=== PATIENT | female | born 1935 | race Caucasian/White ===

== ENCOUNTER 2018-09-16 13:19 | Day surgery (SDC) | payer MEDICARE, BC ==
[~2018-09-16 13:19] MED LIST: DEXAMETHASONE SOD PHOSPHATE 10 MG/ML 1 ML VIAL IV ONE; HEPARIN SODIUM,PORCINE 5,000 UNIT/ML 1 ML VIAL SQ ONE; LIDOCAINE 1% 20 ML VIAL (10MG/ML) FOR IV START INTRADERMA PRN; MIDAZOLAM 2 MG/2 ML VIAL IV PRN; ONDANSETRON 4 MG/2 ML VIAL IVP ONE; SCOPOLAMINE 1.5MG/72HR PATCH TRANSDERM ONE; ceFAZolin IN SWFI 2 GM/20 ML SYRINGE IVP ONE
[2018-09-16] MEDS: LACTATED RINGERS 1,000 ML IV SCH (13:47)
[2018-09-16 13:48] LABS: Glucose,Whole Blood 93 mg/dL (75-99)
[2018-09-16 14:00] LABS: Basophils % (A) 0 %; Eosinophils # (A) 0.4 k/uL (0-0.7); Eosinophils % (A) 5 %; HCT 38.5 % (34.0-46.0); HGB 12.2 gm/dL (11.4-16.0); Lymphocytes # (A) 1.5 k/uL (1.0-4.8); Lymphocytes % (A) 19 %; MCH 28.9 pg (25.0-35.0); MCHC 31.8 g/dL (31.0-37.0); MCV 91.2 fL (80.0-100.0); Mean Platelet Volume 7.9; Monocytes # (A) 0.7 k/uL (0-1.0); Monocytes % (A) 9 %; Neutrophils # (A) 5.2 k/uL (1.3-7.7); Neutrophils % (A) 65 %; Platelet Count 154 k/uL (150-450); RBC 4.23 m/uL (3.80-5.40); RDW 15.2 % (11.5-15.5)
[2018-09-16 14:33] LABS: Calcium 9.9 mg/dL (8.4-10.2)
[2018-09-16 14:51] LABS: Potassium 4.1 mmol/L (3.5-5.1)
[2018-09-16] MEDS ORDERED: GLYCOPYRROLATE 0.2 MG/ML 2 ML VIAL ONE (16:04)
[2018-09-16] MEDS ORDERED: NEOSTIGMINE 1 MG/ML 10 ML VIAL ONE (16:04)
[2018-09-16] MEDS ORDERED: PROPOFOL 10 MG/ML 20 ML VIAL IV ONE (16:04)
[2018-09-16] MEDS ORDERED: fentaNYL (PF) 50 MCG/ML 2 ML AMP ONE (16:04)
[2018-09-16] MEDS ORDERED: LIDOCAINE 1% INJ 10MG/ML (20 ML MDV) ONE (16:04)
[2018-09-16] MEDS ORDERED: ROCURONIUM BROMIDE 10 MG/ML 10 ML VIAL IV ONE (16:04)
[2018-09-16] MEDS ORDERED: MIDAZOLAM 2 MG/2 ML VIAL ONE (16:04)
[2018-09-16] MEDS ORDERED: BUPIVACAINE-EPI 0.5%-1:200,000 10 ML VIAL SQ ONE (16:52)
[2018-09-16 18:10] LABS: Glucose,Whole Blood 122 mg/dL (75-99)
[2018-09-16] MEDS ORDERED: NALOXONE 0.4 MG/ML 1 ML VIAL IV PRN (18:12)
--- NOTE | 2018-09-16 18:19 | P.OP ---
Date of Procedure: 09/16/18 Procedure(s) Performed: PREOPERATIVE DIAGNOSIS: Umbilical hernia, malfunctioning peritoneal dialysis catheter POSTOPERATIVE DIAGNOSIS: Same, extensive intra-abdominal adhesions PROCEDURE: Laparoscopic revision peritoneal dialysis catheter with laparoscopic omentopexy and laparoscopic extensive lysis of adhesions, umbilical herniorrhaphy with mesh SURGEON: Ally EBL: Minimal ANESTHESIA: General COMPLICATIONS: None OPERATIVE PROCEDURE: Patient place in the operative table in the supine position. The patient's abdomen including the catheter was prepped and draped in usual sterile fashion. A curved linear incision was made to the right side of the patient's umbilical hernia. Dissection through the subcutaneous tissues took place using electrocautery. The patient's hernia sac was excised. The fascial defect was appreciated. This measured 1.5 cm in diameter. There were is a large amount of adhesions at the level of the umbilicus. I could not visualize a free space to place a trocar. At that time a 5 mm optical trocar was used to enter the peritoneal cavity in the left upper quadrant without difficulty. 2 additional 5 mm trochars were placed in the left upper quadrant following that. The patient was noted to have extensive adhesions along the entire midline. The majority of these adhesions were omentum stuck to the abdominal wall however as we approached the pelvis the omentum was stuck to the small bowel and the small bowel was adherent to the abdominal wall particularly in the midline pelvis and the right lower quadrant. I was able to mobilize the majority of the omentum using both sharp dissection and electrocautery. At that point I performed an omentopexy suturing the omentum to fatty tissue present in the right mid to upper quadrant. This was sutured using a 2-0 Ethibond stitch and the tie knot device. The catheter was positioned appropriately in the midpelvis. There was adequate space for the catheter. I did not suture the catheter to the lower abdominal wall. The tubing of the catheter was cut externally. A guidewire was used to try to remove the fibrin from the inside of the catheter. This was partially successful. We also used a 20 mL syringe to irrigate the catheter. I was able to remove a large volume of fibrin from the inside of the catheter at that time. I then connected the catheter to a 1 L bag of saline. There was good flow in and out of the catheter at that point. The pneumoperitoneum was evacuated. The umbilical hernia site was then addressed. The temporary 0 Vicryl stitch was removed. I placed a 4.3 cm ventral ex mesh beneath the fascia. This was sutured in place using trans-fascial 0 Ethibond sutures. The defect was closed using interrupted [id number] 0 Ethibond sutures. The subcutaneous tissues were reapproximated using inverted 3-0 Vicryl sutures. The umbilicus was tacked back down to the fascia using a 3-0 Vicryl suture. The skin was closed using 4-0 Monocryl sutures. Skin glue and sterile dressings were then applied. DISPOSITION: Stable to recovery room
[2018-09-16] MEDS: HYDROmorphone 0.5 MG/0.5 ML SYRINGE IVP PRN ×4 (18:22→18:43)
[2018-09-16] MEDS ORDERED: diphenhydrAMINE 50 MG/ML 1 ML VIAL IVP ONE (19:04)
[2018-09-16] MEDS: HYDROcodone/APAP 5-325MG 1 EACH TAB PO PRN ×2 (20:00→23:37)
[2018-09-16] MEDS ORDERED: NITROGLYCERIN SL TABS 0.4 MG TAB SUBLINGUAL PRN (20:05)
[2018-09-16] MEDS ORDERED: ZOLPIDEM 10 MG TAB PO PRN (20:05)
[2018-09-16] MEDS ORDERED: ATORVASTATIN 80 MG TAB PO SCH (21:00)
[2018-09-16] MEDS ORDERED: LORATADINE 10 MG TAB PO SCH (21:00)
[2018-09-16] MEDS ORDERED: SERTRALINE 25 MG TAB PO SCH (21:00)
[2018-09-16 21:23] LABS: Glucose,Whole Blood 167 mg/dL (75-99)
--- NOTE | 2018-09-16 22:01 | P.CONS ---
History of Present Illness - Reason for Consult Consult date: 09/16/18 medical management Requesting physician: Ranjan Canales - Chief Complaint end-stage renal disease , hernia repair, diabetes, CAD, hypertension and h - History of Present Illness 83-year-old female one of Dr. Green patient with past medical history of type 2 diabetes on insulin, hypertension, hyperlipidemia and atherosclerotic heart disease post MO in the past who has been on hemodialysis for the last few years and had CAPD catheter back in April this year has been doing CAPD at home successfully till the last few weeks when her catheter stopped working. Patient brought to the hospital by Dr. Canales to have her CAPD catheter change and umbilical hernia repair. Also patient had hemodialysis catheter placed in the right IJ vein recently by one of the vascular surgeon in [place] patient apparently will be going on hemodialysis for the next 6 weeks then her CAPD catheter heal. She was admitted to the hospital after surgery hemodynamically was very stable still complaining of quite but pain and distention and abdominal area. Review of Systems CONSTITUTIONAL: Well-developed no acute respiratory distress. EYES: No icterus sclerae, no conjunctivitis. EARS, NOSE, MOUTH, THROAT, and FACE: No sore throat, lymphadenopathy, carotid bruits or deformity. RESPIRATORY: No SOB cough or wheezes. CARDIOVASCULAR: positive PND orthopnea and palpitation GASTROINTESTINAL: possible abdominal distention with nausea discomfort with irritation around CAPD catheter and a hernia repair site. GENITOURINARY: Negative for Hematuria or UTI, no kidney stones. INTEGUMENT/BREAST: Negative for any muscular injury with mild osteoarthritis.. HEMATOLOGIC/LYMPHATIC: Negative for bleed or purpura. MUSCULOSKELTAL: Negative for Myalgia or arthralgia. NEURLOGICAL: No LOC, Sz or syncope, blurred vision dizziness or abnormality.. BEHAVIORAL/PSYCH: Negative. ENDOCRINE: Negative. Past Medical History Past Medical History: Diabetes Mellitus, GERD/Reflux, Hyperlipidemia, Hypertension, Myocardial Infarction ([place]), Osteoarthritis (OA), Renal Disease, Thyroid Disorder Additional Past Medical History / Comment(s): CURRENTLY DOING HEMODIALYSIS ON M, W, F AT [facility]ENTER IN [place]. SINUS/ALLERGIES Last Myocardial Infarction Date:: UNKNOWN DATE History of Any Multi-Drug Resistant Organisms: None Reported Past Surgical History: Appendectomy, Bladder Surgery, Cardiac Valve Replacement, Heart Catheterization With Stent, Hysterectomy Additional Past Surgical History / Comment(s): BLADDER SUSPENSION. AORTIC VALVE REPLACED. BILATERAL CATARACTS WITH LENS IMPLANT. Past Anesthesia/Blood Transfusion Reactions: No Reported Reaction Date of Last Stent Placement:: UNKNOWN DATE Past Psychological History: Depression Smoking Status: Never smoker Past Alcohol Use History: None Reported Past Drug Use History: None Reported - Past Family History Father Additional Family Medical History / Comment(s): COLON Medications and Allergies Home Medications Medication Instructions Recorded Confirmed Type Aspirin [Adult Low Dose Aspirin EC] 81 mg PO DAILY 09/12/18 09/16/18 History Atorvastatin [Lipitor] 80 mg PO HS 09/12/18 09/16/18 History Carvedilol [Coreg] 25 mg PO BID 09/12/18 09/16/18 History Ergocalciferol (Vitamin D2) 1.5 mg PO Q30D 09/12/18 09/16/18 History [Vitamin D2] Evolocumab [Repatha Syringe] 140 mg SQ [id number] 09/12/18 09/16/18 History Eye Vitamin 1 tab PO DAILY 09/12/18 09/16/18 History Fluticasone [place]al [place] [Flonase 1 spr NASAL DAILY 09/12/18 09/16/18 History Nasal [place]] INSULIN LISPRO (humaLOG) [humaLOG] 1 dose SQ AC-TID 09/12/18 09/16/18 History Insulin Degludec [Tresiba] 1 dose SQ AC-TID 09/12/18 09/16/18 History Levothyroxine Sodium [Synthroid] 50 mcg PO QAM 09/12/18 09/16/18 History Lisinopril [Zestril] 10 mg PO QAM 09/12/18 09/16/18 History Loratadine [Claritin] 10 mg PO Q48H 09/12/18 09/16/18 History NIFEdipine [NIFEdipine ER] 90 mg PO QAM 09/12/18 09/16/18 History Nitroglycerin 0.4 mg SL DIRECTED PRN 09/12/18 09/16/18 History Ranitidine HCl [Zantac] 150 mg PO BID 09/12/18 09/16/18 History Sertraline [Zoloft] 25 mg PO HS 09/12/18 09/16/18 History Vitamin C/Biotin [Hair, Skin and 1 tab PO DAILY 09/12/18 09/16/18 History Nails] Zolpidem [Ambien] 10 mg PO HS PRN 09/12/18 09/16/18 History hydrALAZINE HCL 25 mg PO TID 09/12/18 09/16/18 History hydrALAZINE HCL [Apresoline] 75 mg PO TID 09/12/18 09/16/18 History Hydrocodone/Acetaminophen [[place] 1 tab PO Q6HR PRN 3 Days #10 tab 09/16/18 Rx 5-325] Allergies Allergy/AdvReac Type Severity Reaction Status Date / Time Iodinated Contrast- Oral and Allergy RENAL Verified 09/16/18 13:38 IV Dye DISEASE Physical Exam Vitals: Vital Signs Temp Pulse Resp BP BP Pulse Ox 09/16/18 19:40 97.6 F 63 17 177/75 99 09/16/18 19:16 59 L 16 154/69 98 09/16/18 18:58 63 12 168/74 99 09/16/18 18:45 66 16 166/73 100 09/16/18 18:31 60 16 161/74 100 09/16/18 18:16 59 L 16 168/74 100 09/16/18 18:01 97.5 F L 61 14 173/75 97 09/16/18 14:28 166/77 09/16/18 13:42 96.8 F L 68 18 225/98 98 Intake and Output 09/16/18 09/16/18 09/16/18 06:59 14:59 22:59 Intake Total 100 100 Output Total 15 Balance 100 85 Intake: IV 100 100 Output: Estimated Blood Loss 15 Other: # Voids 0 General Appearance: Alert, cooperative, no distress, appears stated age. Neck HEENT: Supple, no lymphadenopathy, no thyroid enlargement, no carotid bruits. Lungs: Clear to auscultation without crackles or wheezes no rhonchi, no deformity. Chest Wall: decrease expansion with deep inspiration no tenderness and no deformity was found on exam, no costochondral pain or discomfort. there is a hemodialysis catheter on the right upper side. Heart: Regular rate and rhythm, S1, S2 normal, no murmur, rub or gallop. Back: Symmetric, no curvature, ROM normal, no CVA tenderness. Abdomen: soft distended with slight irritation and discomfort around the umbilical and a hernia repair site , CAPD catheter was placed on the left side Mrs. Sousa tender with significant decrease bowel sound. Extremities: Extremities normal, atraumatic, no cyanosis or edema. Pulses: 2+ and symmetric. Skin: Skin color, texture, tugor normal, no rashes or lesions. Neurologic: Alert oriented x3 cranial nerves II through XII intact, no motor deficit, no abnormal balance or gait. Results CBC & Chem 7: 09/16/18 13:44 09/16/18 13:44 Labs: Abnormal Lab Results - Last 24 Hours (Table) 09/16/18 09/16/18 09/16/18 Range/Units 13:44 18:07 21:21 Chloride 97 L (98-107) mmol/L Carbon Dioxide 33 H (22-30) mmol/L BUN 34 H (7-17) mg/dL Creatinine 3.56 H (0.52-1.04) mg/dL POC Glucose (mg/dL) 122 H 167 H (75-99) mg/dL Assessment and Plan Plan: 1 post CAPD catheter change and umbilical hernia repair: Surgery successful patient is doing well continue to have slight the pain continue to watch patient hemodynamic status, continue pain management, resume home meds. 2 end-stage renal disease was on CAPD, patient be switched to hemodialysis for the next few weeks to her dialysis catheter with CAPD catheter had healed. 3 diabetes on insulin continue to see by along with a Humalog continue Accu-Chek with sliding scales coverage. 4 hypertension: Remain on hydralazine 75 mg 3 times a day along with nifedipine 90 mg daily lisinopril 10 mg a day and Coreg 25 mg twice a day. 5 hyperlipidemia: Remain on atorvastatin 80 mg daily. 6 hypothyroidism: On levothyroxine 50 g daily resume medication. 7 hyperlipidemia: Patient remain on Repatha injection.. 8 advanced atherosclerotic heart disease post PCI: Continue medical management. 9 valvular heart disease post TAVR 2 years ago at [facility] doing well. Severe GERD: Patient remain on Zantac 150 milligrams twice a day. 11 DVT prophylaxis: On heparin 5000 units subcutaneous twice a day. CODE STATUS: Full code. Dr. rodriguez thank you much for the consult psych can be any further help to please let me know.
[2018-09-16] MEDS: CARVEDILOL 12.5 MG TAB PO SCH (22:10)
[2018-09-16] MEDS: FAMOTIDINE 20 MG TAB PO SCH (22:11)
[2018-09-16] MEDS: hydrALAZINE HCL 25 MG TAB PO SCH (22:12)
[2018-09-17] MEDS: HYDROcodone/APAP 5-325MG 1 EACH TAB PO PRN ×2 (05:50→12:05)
[2018-09-17] MEDS: LACTATED RINGERS 1,000 ML IV SCH (06:23)
[2018-09-17] MEDS ORDERED: LEVOTHYROXINE 50 MCG TAB PO SCH (06:30)
[2018-09-17 06:54] LABS: Glucose,Whole Blood 120 mg/dL (75-99)
[2018-09-17] MEDS ORDERED: INSULIN LISPRO SQ SCH (07:30)
[2018-09-17] MEDS: INSULIN ASPART (NovoLOG) 100 UNIT/ML VIAL SQ SCH ×2 (08:12→12:05)
[2018-09-17] MEDS: hydrALAZINE HCL 25 MG TAB PO SCH (08:16)
[2018-09-17] MEDS: FAMOTIDINE 20 MG TAB PO SCH (08:16)
[2018-09-17] MEDS: CARVEDILOL 12.5 MG TAB PO SCH (08:18)
[2018-09-17] MEDS ORDERED: NON-FORMULARY DRUG (Vitamin C/Biotin [Hair, Skin And Nails] 1 TAB) PO SCH (09:00)
[2018-09-17] MEDS ORDERED: FLUTICASONE 50MCG/SPRAY NASAL 16GM NASAL SCH (09:00)
[2018-09-17] MEDS ORDERED: NIFEdipine XL 90 MG TAB.ER.24 PO SCH (09:00)
[2018-09-17] MEDS ORDERED: ASPIRIN 81 MG PO SCH (09:00)
[2018-09-17] MEDS ORDERED: VIT A,C & E-LUTEIN-MINERALS 1 EACH TAB PO SCH (09:00)
[2018-09-17] MEDS ORDERED: LISINOPRIL 10 MG TAB PO SCH (09:00)
--- NOTE | 2018-09-17 11:19 | P.NPCON ---
History of Present Illness - Reason for Consult end stage renal disease - History of Present Illness Reason for consultation: End-stage renal disease History of present illness: Patient is a 83-year-old female seen in renal consultation for end-stage renal disease. She is maintained on hemodialysis on a Saturday schedule for right chest permacath. Patient was started on hemodialysis in March 2018 and was doing peritoneal dialysis. However she was having difficulty with draining. She underwent laparoscopic revision of the peritoneal dialysis catheter with laparoscopic omentopexy with lysis of adhesions yesterday. Currently sitting up in chair. Denies chest pain or shortness of breath. No edema. Hemodynamically stable. No vomiting or diarrhea. Vital signs are stable. General: The patient appeared well nourished and normally developed. HEENT: Head exam is unremarkable. Neck is without jugular venous distension. LUNGS: Lungs are clear to auscultation and percussion. Breath sounds decreased. HEART: Rate and Rhythm are regular. First and second heart sounds normal. No murmurs, rubs or gallops. ABDOMEN: Abdominal exam reveals normal bowel sounds. Non-tender and non- distended. No evidence of peritonitis. EXTREMITITES: No clubbing, cyanosis, or edema. Past Medical History Past Medical History: Diabetes Mellitus, GERD/Reflux, Hyperlipidemia, Hypertension, Myocardial Infarction ([place]), Osteoarthritis (OA), Renal Disease, Thyroid Disorder Additional Past Medical History / Comment(s): CURRENTLY DOING HEMODIALYSIS ON M, W, F AT C[facility] IN [place]. SINUS/ALLERGIES Last Myocardial Infarction Date:: UNKNOWN DATE History of Any Multi-Drug Resistant Organisms: None Reported Past Surgical History: Appendectomy, Bladder Surgery, Cardiac Valve Replacement, Heart Catheterization With Stent, Hysterectomy Additional Past Surgical History / Comment(s): BLADDER SUSPENSION. AORTIC VALVE REPLACED. BILATERAL CATARACTS WITH LENS IMPLANT. Past Anesthesia/Blood Transfusion Reactions: No Reported Reaction Date of Last Stent Placement:: UNKNOWN DATE Past Psychological History: Depression Smoking Status: Never smoker Past Alcohol Use History: None Reported Past Drug Use History: None Reported - Past Family History Father Additional Family Medical History / Comment(s): COLON Medications and Allergies Home Medications Medication Instructions Recorded Confirmed Type Aspirin [Adult Low Dose Aspirin EC] 81 mg PO DAILY 09/12/18 09/16/18 History Atorvastatin [Lipitor] 80 mg PO HS 09/12/18 09/16/18 History Carvedilol [Coreg] 25 mg PO BID 09/12/18 09/16/18 History Ergocalciferol (Vitamin D2) 1.5 mg PO Q30D 09/12/18 09/16/18 History [Vitamin D2] Evolocumab [Repatha Syringe] 140 mg SQ [id number] 09/12/18 09/16/18 History Eye Vitamin 1 tab PO DAILY 09/12/18 09/16/18 History Fluticasone Nasal [place] [Flonase 1 spr NASAL DAILY 09/12/18 09/16/18 History Nasal [place]] INSULIN LISPRO (humaLOG) [humaLOG] 1 dose SQ AC-TID 09/12/18 09/16/18 History Insulin Degludec [Tresiba] 1 dose SQ AC-TID 09/12/18 09/16/18 History Levothyroxine Sodium [Synthroid] 50 mcg PO QAM 09/12/18 09/16/18 History Lisinopril [Zestril] 10 mg PO QAM 09/12/18 09/16/18 History Loratadine [Claritin] 10 mg PO Q48H 09/12/18 09/16/18 History NIFEdipine [NIFEdipine ER] 90 mg PO QAM 09/12/18 09/16/18 History Nitroglycerin 0.4 mg SL DIRECTED PRN 09/12/18 09/16/18 History Ranitidine HCl [Zantac] 150 mg PO BID 09/12/18 09/16/18 History Sertraline [Zoloft] 25 mg PO HS 09/12/18 09/16/18 History Vitamin C/Biotin [Hair, Skin and 1 tab PO DAILY 09/12/18 09/16/18 History Nails] Zolpidem [Ambien] 10 mg PO HS PRN 09/12/18 09/16/18 History hydrALAZINE HCL 25 mg PO TID 09/12/18 09/16/18 History hydrALAZINE HCL [Apresoline] 75 mg PO TID 09/12/18 09/16/18 History Hydrocodone/Acetaminophen [[place] 1 tab PO Q6HR PRN 3 Days #10 tab 09/16/18 Rx 5-325] Allergies Allergy/AdvReac Type Severity Reaction Status Date / Time Iodinated Contrast- Oral and Allergy RENAL Verified 09/16/18 13:38 IV Dye DISEASE Physical Exam Vitals: Vital Signs Temp Pulse Pulse Resp BP BP Pulse Ox 09/17/18 08:00 64 18 09/17/18 07:13 98.1 F 64 18 160/72 96 09/17/18 05:55 69 178/70 09/17/18 01:08 97.7 F 68 16 145/73 96 09/16/18 22:30 60 183/72 99 09/16/18 22:15 65 192/67 99 09/16/18 22:00 69 189/83 98 09/16/18 21:45 79 190/82 97 09/16/18 21:30 64 183/75 97 09/16/18 21:15 65 181/76 98 09/16/18 21:00 60 182/68 99 09/16/18 20:45 66 176/76 98 09/16/18 20:30 61 188/70 98 09/16/18 20:15 67 187/76 98 09/16/18 20:00 63 188/73 99 09/16/18 19:45 97.6 F 64 18 181/75 99 09/16/18 19:40 97.6 F 63 17 177/75 99 09/16/18 19:16 59 L 16 154/69 98 09/16/18 18:58 63 12 168/74 99 09/16/18 18:45 66 16 166/73 100 09/16/18 18:31 60 16 161/74 100 09/16/18 18:16 59 L 16 168/74 100 09/16/18 18:01 97.5 F L 61 14 173/75 97 09/16/18 14:28 166/77 09/16/18 13:42 96.8 F L 68 18 225/98 98 Intake and Output 09/16/18 09/17/18 09/17/18 22:59 06:59 14:59 Intake Total 100 Output Total 165 Balance -65 Intake: IV 100 Output: Urine 150 Estimated Blood Loss 15 Other: Voiding Method Toilet Toilet CAPD CAPD # Voids 0 Results - Lab Results Most recent lab results Calcium 9.9 mg/dL (8.4-10.2) 09/16/18 13:44 09/16/18 13:44 09/16/18 13:44 Assessment and Plan Plan: Assessment: 1. End-stage renal disease maintained on hemodialysis on a Saturday schedule via right chest permacath. 2. Status post laparoscopic revision of the peritoneal dialysis catheter with omentopexy and lysis of adhesions. 3. Hypertension with chronic kidney disease. 4. Diabetes mellitus. Plan: Hemodialysis today. Stable to be discharged home from nephrology standpoint after dialysis. Thank you for the consultation. I will continue to follow the patient with you during her hospital stay.
[2018-09-17 11:45] LABS: Glucose,Whole Blood 257 mg/dL (75-99)
--- NOTE | 2018-09-17 12:04 | P.PN ---
<Pattie Vick Allan - Last Filed: 09/17/18 11:48> Subjective Progress Note Date: 09/17/18 CHIEF COMPLAINT: Malfunctioning peritoneal dialysis catheter HISTORY OF PRESENT ILLNESS: 83-year-old female who is status post laparoscopic revision of peritoneal dialysis catheter with omentopexy, extensive lysis of adhesions, and umbilical herniorrhaphy with mesh. Patient reports mild tenderness near PD catheter site. Denies nausea or vomiting. BP 160-170s. Patient to undergo hemodialysis today. PHYSICAL EXAM: VITAL SIGNS: Reviewed. GENERAL: Well-developed in no acute distress. HEENT: No sclera icterus. Extraocular movements grossly intact. Moist buccal mucosa. Head is atraumatic, normocephalic. ABDOMEN: Soft. Nondistended. Mild tenderness at PD catheter site. Dressing clean dry intact. Laparoscopic incision sites and dry intact without drainage or erythema. NEUROLOGIC: Alert and oriented. Cranial nerves II through XII grossly intact. ASSESSMENT: 1. Malfunctioning peritoneal dialysis catheter PLAN: Patient to undergo hemodialysis today. Nephrology following Anticipate discharge home after PD Nurse practitioner note has been reviewed by physician. Signing provider agrees with the documented findings, assessment, and plan of care. Objective - Vital Signs Vital signs: Vital Signs Temp 98.1 F 09/17/18 07:13 Pulse 64 09/17/18 08:00 Resp 18 09/17/18 08:00 BP 160/72 09/17/18 07:13 Pulse Ox 96 09/17/18 07:13 Intake & Output 09/16/18 09/17/18 09/17/18 18:59 06:59 18:59 Intake Total 200 Output Total 15 150 Balance 185 -150 Intake: IV 200 Output: Urine 150 Estimated Blood Loss 15 Other: Voiding Method Toilet Toilet CAPD CAPD # Voids 0 - Labs CBC & Chem 7: 09/16/18 13:44 09/16/18 13:44 Labs: Abnormal Lab Results - Last 24 Hours (Table) 09/16/18 09/16/18 09/16/18 Range/Units 13:44 18:07 21:21 Chloride 97 L (98-107) mmol/L Carbon Dioxide 33 H (22-30) mmol/L BUN 34 H (7-17) mg/dL Creatinine 3.56 H (0.52-1.04) mg/dL POC Glucose (mg/dL) 122 H 167 H (75-99) mg/dL 09/17/18 09/17/18 Range/Units 06:53 11:34 Chloride (98-107) mmol/L Carbon Dioxide (22-30) mmol/L BUN (7-17) mg/dL Creatinine (0.52-1.04) mg/dL POC Glucose (mg/dL) 120 H 257 H (75-99) mg/dL <Ranjan Canales - Last Filed: 09/17/18 12:32> Subjective As above. Patient doing well. Pain well controlled. Anticipate discharge afte r dialysis today. Objective - Vital Signs Vital signs: Vital Signs Temp 98.1 F 09/17/18 07:13 Pulse 64 09/17/18 08:00 Resp 18 09/17/18 08:00 BP 160/72 09/17/18 07:13 Pulse Ox 96 09/17/18 07:13 Intake & Output 09/16/18 09/17/18 09/17/18 18:59 06:59 18:59 Intake Total 200 Output Total 15 150 Balance 185 -150 Intake: IV 200 Output: Urine 150 Estimated Blood Loss 15 Other: Voiding Method Toilet Toilet CAPD CAPD # Voids 0 - Labs CBC & Chem 7: 09/16/18 13:44 09/16/18 13:44 Labs: Abnormal Lab Results - Last 24 Hours (Table) 09/16/18 09/16/18 09/16/18 Range/Units 13:44 18:07 21:21 Chloride 97 L (98-107) mmol/L Carbon Dioxide 33 H (22-30) mmol/L BUN 34 H (7-17) mg/dL Creatinine 3.56 H (0.52-1.04) mg/dL POC Glucose (mg/dL) 122 H 167 H (75-99) mg/dL 09/17/18 09/17/18 Range/Units 06:53 11:34 Chloride (98-107) mmol/L Carbon Dioxide (22-30) mmol/L BUN (7-17) mg/dL Creatinine (0.52-1.04) mg/dL POC Glucose (mg/dL) 120 H 257 H (75-99) mg/dL
--- NOTE | 2018-09-17 13:50 | P.DS ---
Providers Expected date of discharge: 09/17/18 Attending physician: Ranjan Canales Consults: 09/16/18 19:53 Consult Physician Stat Consulting Provider: Lonnie Kam Consult Reason/Comments: medical management Do you want consulting provider notified?: Already Contacted 09/16/18 19:54 Consult Physician Stat Consulting Provider: Ml Pedersen Consult Reason/Comments: Dialysis Do you want consulting provider notified?: Yes Primary care physician: Adriana Morley Hospital Course: 83-year-old female who is status post laparoscopic revision of peritoneal dialysis catheter with omentopexy, extensive lysis of adhesions, and umbilical herniorrhaphy with mesh. Patient doing well postoperatively. She received hemodialysis on the day of discharge. She is stable for discharge home today. Please see EMR for further hospital course details. Discharge Diagnosis: 1. Malfunctioning peritoneal dialysis catheter Nurse practitioner note has been reviewed by physician. Signing provider agrees with the documented findings, assessment, and plan of care. Plan - Discharge Summary Discharge Rx Participant: Yes New Discharge Prescriptions: New Hydrocodone/Acetaminophen [[place] 5-325] 1 tab PO Q6HR PRN 3 Days #10 tab PRN Reason: Pain Continue Loratadine [Claritin] 10 mg PO Q48H Ergocalciferol (Vitamin D2) [Vitamin D2] 1.5 mg PO Q30D hydrALAZINE HCL [Apresoline] 75 mg PO TID Zolpidem [Ambien] 10 mg PO HS PRN PRN Reason: Insomnia Vitamin C/Biotin [Hair, Skin and Nails] 1 tab PO DAILY Sertraline [Zoloft] 25 mg PO HS Ranitidine HCl [Zantac] 150 mg PO BID NIFEdipine [NIFEdipine ER] 90 mg PO QAM Lisinopril [Zestril] 10 mg PO QAM Levothyroxine Sodium [Synthroid] 50 mcg PO QAM Insulin Degludec [Tresiba] 1 dose SQ AC-TID INSULIN LISPRO (humaLOG) [humaLOG] 1 dose SQ AC-TID hydrALAZINE HCL 25 mg PO TID Fluticasone Nasal [place] [Flonase Nasal [place]] 1 spr NASAL DAILY Carvedilol [Coreg] 25 mg PO BID Atorvastatin [Lipitor] 80 mg PO HS Aspirin [Adult Low Dose Aspirin EC] 81 mg PO DAILY Nitroglycerin 0.4 mg SL DIRECTED PRN PRN Reason: Chest Pain Eye Vitamin 1 tab PO DAILY Evolocumab [Repatha Syringe] 140 mg SQ [id number] Discharge Medication List Aspirin [Adult Low Dose Aspirin EC] 81 mg PO DAILY 09/12/18 [History] Atorvastatin [Lipitor] 80 mg PO HS 09/12/18 [History] Carvedilol [Coreg] 25 mg PO BID 09/12/18 [History] Ergocalciferol (Vitamin D2) [Vitamin D2] 1.5 mg PO Q30D 09/12/18 [History] Evolocumab [Repatha Syringe] 140 mg SQ [id number] 09/12/18 [History] Eye Vitamin 1 tab PO DAILY 09/12/18 [History] Fluticasone Nasal [place] [Flonase Nasal [place]] 1 spr NASAL DAILY 09/12/18 [History] INSULIN LISPRO (humaLOG) [humaLOG] 1 dose SQ AC-TID 09/12/18 [History] Insulin Degludec [Tresiba] 1 dose SQ AC-TID 09/12/18 [History] Levothyroxine Sodium [Synthroid] 50 mcg PO QAM 09/12/18 [History] Lisinopril [Zestril] 10 mg PO QAM 09/12/18 [History] Loratadine [Claritin] 10 mg PO Q48H 09/12/18 [History] NIFEdipine [NIFEdipine ER] 90 mg PO QAM 09/12/18 [History] Nitroglycerin 0.4 mg SL DIRECTED PRN 09/12/18 [History] Ranitidine HCl [Zantac] 150 mg PO BID 09/12/18 [History] Sertraline [Zoloft] 25 mg PO HS 09/12/18 [History] Vitamin C/Biotin [Hair, Skin and Nails] 1 tab PO DAILY 09/12/18 [History] Zolpidem [Ambien] 10 mg PO HS PRN 09/12/18 [History] hydrALAZINE HCL 25 mg PO TID 09/12/18 [History] hydrALAZINE HCL [Apresoline] 75 mg PO TID 09/12/18 [History] Hydrocodone/Acetaminophen [[place] 5-325] 1 tab PO Q6HR PRN 3 Days #10 tab 09/16/18 [Rx] Follow up Appointment(s)/Referral(s): Ranjan Canales MD [Medical Doctor] - 09/24/18 3:10 pm Adriana Morley DO [Primary Care Provider] - 1 Week Patient Instructions/Handouts: *Surgery [facility] - (Anesthesia) Discharge Instructions Outpatient Surgery, Ventral Hernia (DC) Discharge Disposition: HOME SELF-CARE
[2018-09-17 17:53] VITALS: BP 149/67; PULSE 56; RESP 17; TEMP 97.2
[2018-09-18] MEDS ORDERED: FAMOTIDINE 20 MG TAB PO SCH (09:00)
--- NOTE | 2018-09-19 14:29 | P.PN ---
Subjective Progress Note Date: 09/17/18 83-year-old female one of Dr. Morley patient with past medical history of type 2 diabetes on insulin, hypertension, hyperlipidemia and atherosclerotic heart disease post NH in the past who has been on hemodialysis for the last few years and had CAPD catheter back in April this year has been doing CAPD at home successfully till the last few weeks when her catheter stopped working. Patient brought to the hospital by Dr. Canales to have her CAPD catheter change and umbilical hernia repair. Also patient had hemodialysis catheter placed in the right IJ vein recently by one of the vascular surgeon in [place] patient apparently will be going on hemodialysis for the next 6 weeks then her CAPD catheter heal. She was admitted to the hospital after surgery hemodynamically was very stable still complaining of quite but pain and distention and abdominal area. 09/17: Patient is status post laparoscopic revision of peritoneal dialysis catheter and omentopexy and lysis of adhesions. Patient denies any new complaints. She has had no postop complications. She has been hemodynamically stable, afebrile. Patient is on hemodialysis and is set up at the [facility]. Patient is scheduled for hemodialysis today and cleared for discharge home. Patient is being discharged home in stable condition. Review of Systems CONSTITUTIONAL: Well-developed no acute respiratory distress. Denies fever, denies chills EYES: No icterus sclerae, no conjunctivitis. EARS, NOSE, MOUTH, THROAT, and FACE: No sore throat, lymphadenopathy, carotid bruits or deformity. RESPIRATORY: No SOB cough or wheezes. CARDIOVASCULAR: positive PND orthopnea and palpitation GASTROINTESTINAL: possible abdominal distention with nausea discomfort with irritation around CAPD catheter and a hernia repair site. GENITOURINARY: Negative for Hematuria or UTI, no kidney stones. INTEGUMENT/BREAST: Negative for any muscular injury with mild osteoarthritis.. HEMATOLOGIC/LYMPHATIC: Negative for bleed or purpura. MUSCULOSKELTAL: Negative for Myalgia or arthralgia. NEURLOGICAL: No LOC, Sz or syncope, blurred vision dizziness or abnormality.. BEHAVIORAL/PSYCH: Negative. ENDOCRINE: Negative. Objective - Vital Signs Vital signs: Vital Signs Temp 98.1 F 09/17/18 07:13 Pulse 64 09/17/18 07:13 Resp 18 09/17/18 07:13 BP 160/72 05/22/19 07:13 Pulse Ox 96 09/17/18 07:13 Intake & Output 09/16/18 09/17/18 09/17/18 18:59 06:59 18:59 Intake Total 200 Output Total 15 150 Balance 185 -150 Intake: IV 200 Output: Urine 150 Estimated Blood Loss 15 Other: Voiding Method Toilet CAPD # Voids 0 - Exam General Appearance: Alert, cooperative, no distress, appears stated age. Patien t appears comfortable in bed. Neck HEENT: Supple, no lymphadenopathy, no thyroid enlargement, no carotid bruits. Lungs: Clear to auscultation without crackles or wheezes no rhonchi, no deformity. Chest Wall: decrease expansion with deep inspiration no tenderness and no deformity was found on exam, no costochondral pain or discomfort. there is a hemodialysis catheter on the right upper side. Heart: Regular rate and rhythm, S1, S2 normal, no murmur, rub or gallop. Back: Symmetric, no curvature, ROM normal, no CVA tenderness. Abdomen: soft distended with slight irritation and discomfort around the umbilical and a hernia repair site , CAPD catheter was placed on the left side. Extremities: Extremities normal, atraumatic, no cyanosis or edema. Pulses: 2+ and symmetric. Skin: Skin color, texture, tugor normal, no rashes or lesions. Neurologic: Alert oriented x3 cranial nerves II through XII intact, no motor deficit, no abnormal balance or gait. - Labs CBC & Chem 7: 09/16/18 13:44 09/16/18 13:44 Labs: Abnormal Lab Results - Last 24 Hours (Table) 09/16/18 09/16/18 09/16/18 Range/Units 13:44 18:07 21:21 Chloride 97 L (98-107) mmol/L Carbon Dioxide 33 H (22-30) mmol/L BUN 34 H (7-17) mg/dL Creatinine 3.56 H (0.52-1.04) mg/dL POC Glucose (mg/dL) 122 H 167 H (75-99) mg/dL 09/17/18 Range/Units 06:53 Chloride (98-107) mmol/L Carbon Dioxide (22-30) mmol/L BUN (7-17) mg/dL Creatinine (0.52-1.04) mg/dL POC Glucose (mg/dL) 120 H (75-99) mg/dL Assessment and Plan Plan: 1 post CAPD catheter change and umbilical hernia repair: Surgery successful patient is doing well continue to have slight the pain continue to watch patient hemodynamic status, continue pain management, resume home meds. 2 end-stage renal disease was on CAPD, patient be switched to hemodialysis for the next few weeks to her dialysis catheter with CAPD catheter had healed. Outpatient HD has been arranged. Patient to receive HD prior to discharge. 3 diabetes on insulin continue to see by along with a Humalog continue Accu-Chek with sliding scales coverage. 4 hypertension: Remain on hydralazine 75 mg 3 times a day along with nifedipine 90 mg daily lisinopril 10 mg a day and Coreg 25 mg twice a day. 5 hyperlipidemia: Remain on atorvastatin 80 mg daily. 6 hypothyroidism: On levothyroxine 50 g daily resume medication. 7 hyperlipidemia: Patient remain on Repatha injection.. 8 advanced atherosclerotic heart disease post PCI: Continue medical management. 9 valvular heart disease post TAVR 2 years ago at [facility] doing well. Severe GERD: Patient remain on Zantac 150 milligrams twice a day. 11 DVT prophylaxis: On heparin 5000 units subcutaneous twice a day. CODE STATUS: Full code. Dr. Canales thank you much for the consult psych can be any further help to please let me know. Discharge plan: Home Impression and plan of care have been directed as dictated by the signing physician. Dorie Ross nurse practitioner acting as scribe for signing physician.
[2018-09-30] MEDS ORDERED: EVOLOCUMAB SQ SCH (09:00)
[2018-10-11] MEDS ORDERED: ERGOCALCIFEROL 50,000 UNIT CAP PO SCH (09:00)
== END 2018-09-17 16:16 | disposition home or self-care (01) ==
LOC: OR 13:19 → 4SSUR 18:47 → OR 09-17 16:16
PROVIDERS: ATTEND Surgery
DX: K42.9 Umbilical hernia without obstruction or gangrene (principal); T85.611A Breakdown (mechanical) of intraperitoneal dialysis catheter, initial encounter; K66.0 Peritoneal adhesions (postprocedural) (postinfection); I25.10 Atherosclerotic heart disease of native coronary artery without angina pectoris; E11.22 Type 2 diabetes mellitus with diabetic chronic kidney disease; I12.0 Hypertensive chronic kidney disease with stage 5 chronic kidney disease or end stage renal disease; N18.6 End stage renal disease; Z99.2 Dependence on renal dialysis; Z87.891 Personal history of nicotine dependence; Z79.4 Long term (current) use of insulin; Z95.2 Presence of prosthetic heart valve; Z90.710 Acquired absence of both cervix and uterus; Z95.5 Presence of coronary angioplasty implant and graft; E78.5 Hyperlipidemia, unspecified; K21.9 Gastro-esophageal reflux disease without esophagitis; F32.9 Major depressive disorder, single episode, unspecified; I25.2 Old myocardial infarction; M19.90 Unspecified osteoarthritis, unspecified site; G47.33 Obstructive sleep apnea (adult) (pediatric); E03.9 Hypothyroidism, unspecified; Z79.890 Hormone replacement therapy; Z79.82 Long term (current) use of aspirin; Z79.02 Long term (current) use of antithrombotics/antiplatelets; Z79.899 Other long term (current) drug therapy; Z88.6 Allergy status to analgesic agent; Z88.1 Allergy status to other antibiotic agents; Z91.048 Other nonmedicinal substance allergy status; Z91.041 Radiographic dye allergy status
CPT/HCPCS: 80048; 85025; 88302; 49652; 49325; 49326; C1769; C1781; J2250; J1200; J1644; J1100; J2710; J2405; J2001; J3010; J2704; J1170; J0690; 90935

== ENCOUNTER 2018-12-03 08:25 | Day surgery (SDC) | payer MEDICARE, BC ==
[2018-11-24 15:44] VITALS: BMI 27.3
[~2018-12-03 08:25] MED LIST changes: -DEXAMETHASONE SOD PHOSPHATE 10 MG/ML 1 ML VIAL IV ONE; +LACTATED RINGERS 1,000 ML IV SCH; -MIDAZOLAM 2 MG/2 ML VIAL IV PRN; +MORPHINE SULFATE 2 MG/ML SYRINGE IV PRN; +ONDANSETRON 4 MG/2 ML VIAL IVP PRN; -SCOPOLAMINE 1.5MG/72HR PATCH TRANSDERM ONE; -ceFAZolin IN SWFI 2 GM/20 ML SYRINGE IVP ONE
[2018-12-03 09:00] VITALS: TEMP 97
[2018-12-03 09:10] LABS: Glucose,Whole Blood 94 mg/dL (75-99)
[2018-12-03] MEDS ORDERED: fentaNYL (PF) 50 MCG/ML 2 ML AMP ONE (09:38)
[2018-12-03] MEDS ORDERED: MIDAZOLAM 2 MG/2 ML VIAL ONE (09:38)
[2018-12-03] MEDS ORDERED: PROPOFOL 10 MG/ML 20 ML VIAL IV ONE (09:38)
[2018-12-03] MEDS ORDERED: KETAMINE 10 MG/ML 20 ML VIAL ONE (09:38)
[2018-12-03] MEDS ORDERED: BUPIVACAINE (PF) 0.5% 30 ML VIAL SQ ONE (09:40)
[2018-12-03 10:32] LABS: Glucose,Whole Blood 71 mg/dL (75-99)
[2018-12-03] MEDS ORDERED: NALOXONE 0.4 MG/ML 1 ML VIAL IV PRN (10:32)
--- NOTE | 2018-12-03 10:33 | P.OP ---
Date of Procedure: 12/03/18 Procedure(s) Performed: PREOPERATIVE DIAGNOSIS: Renal failure POSTOPERATIVE DIAGNOSIS: Same PROCEDURE: PD cath removal SURGEON: Ally EBL: 2 mL ANESTHESIA: Sedation and local COMPLICATIONS: None OPERATIVE PROCEDURE: Patient was placed in the supine position. The abdomen was prepped and draped in usual sterile fashion. The previous paramedian incision was re-incised after localizing the skin. The subcutaneous tissues were divided using electrocautery. Blunt dissection around the cuff that was present at the fascia and peritoneum took place. The cuff was fully mobilized. The catheter was removed from the perineal cavity. The outer cuff was dissected from the saphenous fascia using electrocautery. The catheter was cut on the other side of that cuff and the catheter was removed. The fascial defect was closed using a single [id number] 0 Vicryl stitch. The subcutaneous tissues were closed using 3-0 Vicryl sutures and the skin using 4-0 Monocryl sutures. Skin glue and sterile dressings were applied. DISPOSITION: Stable to recovery room
[2018-12-03 11:20] VITALS: BP 157/69; PULSE 71; RESP 20
== END 2018-12-03 11:22 | disposition home or self-care (01) ==
LOC: OR 08:25
PROVIDERS: ATTEND Surgery
DX: T85.898A Other specified complication of other internal prosthetic devices, implants and grafts, initial encounter (principal); K66.0 Peritoneal adhesions (postprocedural) (postinfection); E11.22 Type 2 diabetes mellitus with diabetic chronic kidney disease; I12.0 Hypertensive chronic kidney disease with stage 5 chronic kidney disease or end stage renal disease; N18.6 End stage renal disease; Z99.2 Dependence on renal dialysis; Z95.5 Presence of coronary angioplasty implant and graft; Z95.2 Presence of prosthetic heart valve; I25.2 Old myocardial infarction; G47.33 Obstructive sleep apnea (adult) (pediatric); E07.9 Disorder of thyroid, unspecified; I25.10 Atherosclerotic heart disease of native coronary artery without angina pectoris; K21.9 Gastro-esophageal reflux disease without esophagitis; Z79.4 Long term (current) use of insulin; Z91.041 Radiographic dye allergy status; Z79.899 Other long term (current) drug therapy; Z79.890 Hormone replacement therapy
CPT/HCPCS: 84132; 49422; J2250; J1644; J0690; J2405; J3010; J2704